=== PATIENT | male | born 1945 | race Caucasian/White ===

== ENCOUNTER → 2018-03-02 | Outpatient (CLI) | payer OTHER ==
[~2018-03-02] MED LIST: CEP500 PO; HYDR-3378 PO; LOR5/325 PO; NO RTN MEDS; PER PO; [UNRECOGNIZED DRUG - CODE] PO
--- NOTE | 2018-03-02 11:21 | RADIOLOGY IMAGING REPORT ---
FACILITY: [facility] [place] PATIENT NAME: Zander Villa : 1945 MR: [id number] V: [id number] EXAM DATE: [id number] ORDERING PHYSICIAN: JENNIFER HERRERA TECHNOLOGIST: Location: [facility] Patient: Zander Villa : 1945 Visit/Account:[id number] Date of Sevice: 03/02/2018 Exam type: CHEST SINGLE AP History: Work physical, no chest complaints Comparison: February 25, 2017 Findings: Thelungs are free of acute effusions, infiltrates or edema. Cardiac silhouette is normal in size. T rachea is in midline. There is a gentle levoconvex scoliosis of the thoracic spine.. IMPRESSION: 1. No acute heart pulmonary process is seen Report Dictated By: Lauren Love MD at 03/02/2018 11:15 AM Report E-Signed By: Lauren Love MD at 03/02/2018 11:17 AM WSN:[email or web address]
== END ==
LOC: RAD 09:48
PROVIDERS: ATTEND Family Medicine
DX: Z02.9 Encounter for administrative examinations, unspecified (principal); M41.84 Other forms of scoliosis, thoracic region
CPT/HCPCS: 71045

== ENCOUNTER → 2018-09-22 | Outpatient (CLI) | payer MEDICARE, OTHER ==
--- NOTE | 2018-09-22 15:41 | RADIOLOGY IMAGING REPORT ---
FACILITY: [facility] [place] PATIENT NAME: Zander Villa : 1945 MR: [id number] V: [id number] EXAM DATE: ORDERING PHYSICIAN: KRISTY ALANIS TECHNOLOGIST: Location: [facility] [place] Patient: Zander Villa : 1945 Visit/Account:[id number] Date of Sevice: 09/22/2018 DEXA Scan Clinical history: Compression fractures in thoracic spine. Comparison: None available. LUMBAR SPINE: The bone mineral density (BMD) measured from L1-L4 correlates with a Z-score 1.3 and a T-score of 0.7 which is Normal as defined by the World Health Organization. The corresponding risk of fracture in the lumbar spine is Not increased compared with a young adult reference population. HIP: Bone mineral density (BMD) measured in the right total hip region correlates with a Z-score 10.5 and a T-score of -1.4 which is osteopenia as defined by the World Health Organization. The corresponding risk of fracture in the hip is to 3 times increased compared with a young adult reference population . T score left femoral neck -1.8 Bone mineral density (BMD) measured in the Femoral Neck region measures 0.835 g/cm2. Impression: 1. Lumbar spine: Normal. 2. Left Hip: Osteopenia. 3. Femoral Neck: Bone Mineral Density is 0.835 g/cm2 The next DEXA scan of this patient should include the following sites: L1-L4 and the left hip. FRAX? WHO Fracture Risk Assessment Tool link: <http://www.shef.ac.uk/FRAX/tool.jsp?locationValue=9> PLEASE NOTE: 1) The World Health Organization defines low BMD as follows: T-score Normal > -1 Osteopenia < -1 and > -2.5 Osteoporosis < -2.5 without fractures Established osteoporosis < -2.5 with fractures 2) In general, you may wish to consider: Diagnosis Treatment Follow-up DEXA Normal BMD Prevention 2-3 years Osteopenia Prevention/therapy 1-2 years Osteoporosis Therapy Yearly 3) Fracture risk estimated from the T-score is more accurate for vertebral fractures (often spontane ous) than for hip fractures. Report Dictated By: Lauren Love MD at 09/22/2018 3:32 PM Report E-Signed By: Lauren Love MD at 09/22/2018 3:35 PM BHARATN:DARREL
== END ==
LOC: RAD 14:40
PROVIDERS: ATTEND Physician Assistant
DX: M85.80 Other specified disorders of bone density and structure, unspecified site (principal); S22.008D Other fracture of unspecified thoracic vertebra, subsequent encounter for fracture with routine healing; N28.1 Cyst of kidney, acquired
CPT/HCPCS: 77080

== ENCOUNTER → 2018-09-23 | Outpatient (CLI) | payer MEDICARE, OTHER ==
--- NOTE | 2018-09-23 14:13 | RADIOLOGY IMAGING REPORT ---
FACILITY: [facility] PATIENT NAME: Zander Villa : 1945 MR: [id number] V: [id number] EXAM DATE: ORDERING PHYSICIAN: KRISTY LAANIS TECHNOLOGIST: Location: [facility] Patient: Zander Villa : 1945 Visit/Account:[id number] Date of Sevice: 09/23/2018 KIDNEYS EXAMINATION: Renal ultrasound. History: Renal pelvic cysts COMPARISON STUDIES: CT IVP February 06, 2007 FINDINGS: Kidneys: Right kidney- 10.5 x 4 x 4.3 cm cm Left kidney- 10 x 5.5 x 4.9 cm cm Uniform and symmetric blood flow in each kidney by Doppler ultrasound. Hydronephrosis: none There multiple parapelvic cysts seen in both kidneys the largest on the right measures 2.4 x 0.9 x 1. 2 cm. The largest on the left measures 2.2 x 1.4 x 1.1 cm Bladder: Prevoid volume 234 mL. Post void residual 106 mL. Bilateral ureteral jets are present. Incidentally noted is a prominent prostate gland measuring 6.14 x 3.75 x 6.15 cm Abdominal aorta and IVC: Aorta and IVC are patent by Doppler ultrasound. IMPRESSION: Multiple parapelvic cysts in both kidneys Prominent prostate gland Report Dictated By: Lauren Love MD at 09/23/2018 2:07 PM Report E-Signed By: Lauren Love MD at 09/23/2018 2:10 PM WSN:[email or web address]
== END ==
LOC: US 07:55
PROVIDERS: ATTEND Physician Assistant
DX: N28.1 Cyst of kidney, acquired (principal); N40.0 Benign prostatic hyperplasia without lower urinary tract symptoms
CPT/HCPCS: 76705